=== PATIENT | female | born 1995 | race Caucasian/White ===

== ENCOUNTER → 2017-10-06 21:05 | Inpatient (IN) | payer OTHER ==
[2017-10-05 06:36] LABS: Basophils % (A) 0 %; Eosinophils # (A) 0.1 k/uL (0-0.7); Eosinophils % (A) 1 %; HCT 34.4 % (34.0-46.0); HGB 11.6 gm/dL (11.4-16.0); Lymphocytes # (A) 1.7 k/uL (1.0-4.8); Lymphocytes % (A) 18 %; MCH 30.7 pg (25.0-35.0); MCHC 33.6 g/dL (31.0-37.0); MCV 91.5 fL (80.0-100.0); Mean Platelet Volume 9.5; Monocytes # (A) 0.6 k/uL (0-1.0); Monocytes % (A) 6 %; Neutrophils # (A) 7.2 k/uL (1.3-7.7); Neutrophils % (A) 73 %; Platelet Count 180 k/uL (150-450); RBC 3.76 m/uL (3.80-5.40); WBC 9.9 k/uL (3.8-10.6)
[2017-10-05] MEDS: LACTATED RINGERS 1,000 ML IV SCH ×2 (07:08→13:43)
[2017-10-05] MEDS: OXYTOCIN 20 UNITS/1000 ML NS 1,000 ML IV SCH ×2 (07:23→21:03)
--- NOTE | 2017-10-05 09:24 | P.HPOB ---
History of Present Illness H&P Date: 10/05/17 This is a 22-year-old white female 2 para 1001 EDC 10/12/2017 at 39 and one sevenths weeks' gestation. Patient presents today for induction with favorable multiparous cervix. Her is remarkable for increased amniotic fluid index at 27 cm, along with an estimated weight of 95th percentile. She denies vaginal bleeding or fluid leakage. Fetus is been active throughout the . Past obstetric history is significant for blood type A+, group B strep cultures positive, rubella status immune. VDRL testing, hepatitis B surface antigen, HIV testing, urine culture, gonorrhea Chlamydia cultures all negative. One- hour Glucola 112. Past medical history is significant for Jose's thyroiditis and anemia. Past surgical history adenoidectomy 1998, wisdom teeth extracted. Current medications vitamins daily. ALLERGIES include red dye to which reports hives and swelling as well as seasonal ALLERGIES. Reproductive history significant for 8 pounds vaginal delivery in 2014. Family history significant for thyroiditis, hypertension, multiple myeloma, myocardial infarction and stroke, kidney failure. Social history patient is , she has never been a smoker, she denies alcohol or drug use. On exam this is a pleasant white female who is 5 foot 0 inches, 176 pounds, vital signs are stable including an admission blood pressure 124/66, patient is afebrile. The general physical exam is within normal limits. Chest is clear in all carrillo. Extremities reveal trace to +1 edema. heart rate is consistent with reactive NST. Cervix is 3 cm dilated, 70% effaced, -2 station, vertex presentation, anterior and soft. Artificial amniorrhexis reveals abundant clear fluid. Impression: 39 and one sevenths weeks intrauterine , suspected macrosomia and polyhydramnios. Here for induction. Positive group B strep cultures, first dose of antibiotics given. Plan: Continue antibiotic per administration per hospital protocol. Continue oxytocin induction per protocol. Close maternal and surveillance. Anticipate normal spontaneous vaginal delivery. Review of Systems Negative except as in HPI Past Medical History Past Medical History: Thyroid Disorder Additional Past Medical History / Comment(s): hypothyroid History of Any Multi-Drug Resistant Organisms: None Reported Past Surgical History: Adenoidectomy Additional Past Surgical History / Comment(s): childhood. wisdom teeth removal 2010 Past Anesthesia/Blood Transfusion Reactions: No Reported Reaction Past Psychological History: No Psychological Hx Reported Smoking Status: Never smoker Past Drug Use History: None Reported - Past Family History Father History Unknown: Yes Additional Family Medical History / Comment(s): heart attack and stroke Medications and Allergies Home Medications Medication Instructions Recorded Confirmed Type [place]-3 Fatty Acids [[place]-3] 1,000 mg PO DAILY 10/05/17 10/05/17 History Vitamin B Complex/Folic Acid 0.4 mg PO DAILY 10/05/17 10/05/17 History [B-Complex Tablet] Allergies Allergy/AdvReac Type Severity Reaction Status Date / Time gluten Allergy Swelling Verified 10/05/17 06:10 Milk Containing Products Allergy Rash/Hives Verified 10/05/17 06:10 [Dairy] red dye Allergy Rash/Hives Verified 10/05/17 06:10 yellow dye Allergy Swelling Verified 10/05/17 06:10 Exam - Vital Signs Vital signs: Vital Signs Temp Pulse Resp BP 10/05/17 07:26 98.4 F 80 16 124/66 Intake and Output 10/04/17 10/05/17 10/05/17 22:59 06:59 14:59 Other: Weight 79.832 kg See dictation please under HPI Results Result Diagrams: 10/05/17 06:15 Abnormal Lab Results - Last 24 Hours (Table) 10/05/17 Range/Units 06:15 RBC 3.76 L (3.80-5.40) m/uL Assessment and Plan Plan: Continue antibiotic administration per hospital protocol for positive group B strep cultures. Continue oxytocin per hospital protocol. Close maternal and surveillance. Anticipate normal spontaneous vaginal delivery. Time with Patient: Less than 30
[2017-10-05] MEDS: PENICILLIN G POTASSIUM (BULK) 2,500,000 UNIT in DEXTROSE 5% IN WATER 100 ML IV SCH ×6 (11:30→19:18)
--- NOTE | 2017-10-05 21:25 | P.PROBDLV ---
Vaginal Delivery Note - . Vaginal Delivery Note: White female 2 papr 1001 EDC 10/12/2017 at 39 and one sevenths weeks' gestation. Patient presented for induction with macrosomia, estimated weight greater than 95th percentile, and elevated LEONARDA. is remarkable for positive group B strep cultures, rubella status immune, blood type A positive. Please see my dictated history and physical for details. Artificial amniorrhexis revealed abundant clear fluid. Oxytocin was started and titrated per hospital protocol. Penicillin G was given per hospital protocol as well, patient received for doses. She became completely dilated at 1930 hrs. and began the second stage of labor at that time. Patient did well in the second stage. heart tones remained reassuring with excellent roxe-mo-hvuf variability. Ultimately the perineal body was prepped and draped in the usual sterile fashion. 's head crowned occiput anterior position and he restituted accordingly. There was a nuchal cord 1 that was reduced on the perineal body. At this time attempt was made to deliver the anterior or left shoulder. No descent was noted. Therefore an exaggerated Angelina maneuver was performed along with suprapubic pressure. Again, no station was made. Attempt was then made to perform the would's corkscrew maneuver, but the infant's torso did not rotate. Once again suprapubic pressure was given with downward motion and the left shoulder delivered from underneath the pubic symphysis. At this point the oropharynx, nasopharynx and external nares were all bulb suctioned on the perineal body. Patient is officially delivered of a liveborn male infant at 2002 hours. The umbilical cord is doubly clamped and ligated, he is handed to waiting nurses for evaluation where scores of 8 and 8 at one and 5 minutes respectively are given. The placenta delivers spontaneously, it is inspected and noted to be intact with trivascular cord at 2004 hours. This time the perineal body is redraped. Inspection of the cervix, vagina, perineum, periurethral and perirectal areas reveals no lacerations and no defects. Fundus is firm and in the midline, symmetric and at the umbilicus upon completion of delivery. All sponge needle and enhancement counts are correct at the end of the procedure. weighed 4410 g or 9 lbs. 12 oz. Patient is requesting circumcision for her infant son.
[2017-10-05] MEDS: IBUPROFEN 600 MG TAB PO PRN (23:19)
[2017-10-06] MEDS: ACETAMINOPHEN TAB 325 MG TAB PO PRN ×2 (02:07→08:55)
[2017-10-06 04:44] VITALS: RESP 18
[2017-10-06] MEDS: IBUPROFEN 600 MG TAB PO PRN ×2 (05:11→11:14)
--- NOTE | 2017-10-06 07:34 | P.DS ---
Providers Date of admission: 10/05/17 05:54 Expected date of discharge: 10/06/17 Attending physician: Ginette Romero Primary care physician: Stated None Hospital Course: This is a 22-year-old white female 2 para 1001 EDC 10/12/2017 at 39 and one sevenths weeks' gestation. Patient presented for induction for suspected macrosomia, estimated weight greater than 95th percentile, and elevated fluid her amniotic fluid index. is remarkable for positive group B strep cultures, please see my dictated history and physical for details. Patient was admitted, artificial amniorrhexis revealed clear fluid. Oxytocin was started and titrated per hospital protocol. She requested and received an epidural. She went on to deliver a liveborn male infant with scores of 8 and 8 at one and 5 minutes respectively. weighed 9 lbs. 12 oz. or 4410 g. She did have a mild shoulder dystocia that was alleviated with Angelina maneuvers and suprapubic pressure. No lacerations were sustained. Estimated blood loss 300 mL's. Please see my dictated delivery note for details. This morning the patient is doing well. She is voiding, ambulating and passing flatus without difficulty. Vital signs are stable and she is afebrile. Fundus is firm and in the midline, symmetric and 18 week size. Extremities are negative for edema. Breasts are not engorged. Circumcision has been performed , please see dictation. Patient is being discharged home in very good condition. She will follow-up with me in the office in 6 weeks. I have reminded her no intercourse, tampons or douching. We've discussed briefly options for contraception and we will discuss this further in the office. She will use jopa-[id number] ibuprofen as needed for pain, 2 200 mg pills, 3 every 6 hours as needed. She is reminded to call me with any fevers shakes or chills, foul smelling or copious lochia, with any pain not alleviated by [id number] products, with any issues of the breasts, the perineal body, or indeed with any difficulties questions or concerns. Patient Condition at Discharge: Good Plan - Discharge Summary New Discharge Prescriptions: No Action Vitamin B Complex/Folic Acid [B-Complex Tablet] 0.4 mg PO DAILY [place]-3 Fatty Acids [[place]-3] 1,000 mg PO DAILY Discharge Medication List [place]-3 Fatty Acids [[place]-3] 1,000 mg PO DAILY 10/05/17 [History] Vitamin B Complex/Folic Acid [B-Complex Tablet] 0.4 mg PO DAILY 10/05/17 [ History] Follow up Appointment(s)/Referral(s): Ginette Romero MD [STAFF PHYSICIAN] - 6 Weeks
[2017-10-06] MEDS: SENNOSIDES-DOCUSATE SODIUM 1 EACH TAB PO SCH ×2 (08:51→21:20)
[2017-10-06 10:30] VITALS: TEMP 97.8
[2017-10-06 16:07] VITALS: BP 104/46; PULSE 56
[~2017-10-06 21:05] MED LIST: BENZOCAINE/MENTHOL SPRAY 1 GM/SPRAY AEROSOL TOPICAL PRN; BUPIVACAINE (PF) 0.25% 30 ML VIAL ONE; CARBOPROST TROMETHAMINE 250 MCG/ML 1 ML AMP IM PRN; HYDROCORTISONE 2.5% RECTAL CREAM 30 GM TUBE RECTAL PRN; HYDROcodone/APAP 5-325MG 1 EACH TAB PO PRN; IBUPROFEN ORAL SUSP 100 MG/5 ML CUP PO PRN; LACTATED RINGERS 1,000 ML IV SCH; LANOLIN CREAM 5 GM TUBE TOPICAL PRN; LIDOCAINE 1% (PF) 10 MG/ML (30 ML SDV) SQ PRN; METHYLERGONOVINE 0.2 MG/ML 1 ML AMP IM PRN; OXYTOCIN 10 UNIT/ML 1 ML VIAL IM PRN; OXYTOCIN 30 UNITS/500 ML NS 30 UNIT in SALINE 1 500ML.BAG IV SCH; PENICILLIN G POTASSIUM (BULK) 2,500,000 UNIT in DEXTROSE 5% IN WATER 100 ML IV SCH; PENICILLIN G POTASSIUM (BULK) 5,000,000 UNIT in DEXTROSE 5% IN WATER 100 ML IV STA; PENICILLIN G POTASSIUM 2,500,000 UNIT in DEXTROSE 5% IN WATER 100 ML IVPB SCH; SIMETHICONE 80 MG CHEWABLE PO PRN; SODIUM CHLORIDE 0.9% 100 ML BAG ONE; TERBUTALINE 1 MG/ML VIAL SQ PRN; WITCH HAZEL 1 EACH MED..PAD TOPICAL PRN; ZOLPIDEM 5 MG TAB PO PRN; diphenhydrAMINE 25 MG CAP PO PRN; diphenhydrAMINE 50 MG CAP PO PRN; diphenhydrAMINE 50 MG/ML 1 ML VIAL IVP PRN; fentaNYL (PF) 50 MCG/ML 5 ML AMP ONE
== END | disposition home or self-care (01) | DRG 775 ==
LOC: 4FBP 10-05 05:54
PROVIDERS: ADMIT Obstetrics & Gynecology; ATTEND Obstetrics & Gynecology
PROC: 10907ZC Drainage of Amniotic Fluid, Therapeutic from Products of Conception, Via Natural or Artificial Opening (ICD-10-PCS; principal; 2017-10-05)
PROC: 10E0XZZ Delivery of Products of Conception, External Approach (ICD-10-PCS; principal; 2017-10-05)
PROC: 3E0R3NZ Introduction of Analgesics, Hypnotics, Sedatives into Spinal Canal, Percutaneous Approach (ICD-10-PCS; principal; 2017-10-05)
PROC: 00HU33Z Insertion of Infusion Device into Spinal Canal, Percutaneous Approach (ICD-10-PCS; principal; 2017-10-05)
PROC: 3E033VJ Introduction of Other Hormone into Peripheral Vein, Percutaneous Approach (ICD-10-PCS; principal; 2017-10-05)
DX: O36.63X0 Maternal care for excessive fetal growth, third trimester, not applicable or unspecified (principal); O69.81X0 Labor and delivery complicated by cord around neck, without compression, not applicable or unspecified; O99.284 Endocrine, nutritional and metabolic diseases complicating childbirth; E06.3 Autoimmune thyroiditis; O99.824 Streptococcus B carrier state complicating childbirth; Z37.0 Single live birth; Z3A.39 39 weeks gestation of pregnancy; Z82.49 Family history of ischemic heart disease and other diseases of the circulatory system; Z83.49 Family history of other endocrine, nutritional and metabolic diseases
CPT/HCPCS: 85025; 88307

== ENCOUNTER → 2019-04-05 | Outpatient (CLI) | payer OTHER | END | disposition home or self-care (01) | LOC: LABWHC1 15:10 | PROVIDERS: ATTEND Obstetrics & Gynecology | DX: O20.0 Threatened abortion (principal); Z3A.00 Weeks of gestation of pregnancy not specified | CPT/HCPCS: 36415; 84702 ==

== ENCOUNTER → 2019-04-07 | Outpatient (CLI) | payer OTHER | END | disposition home or self-care (01) | LOC: LABWHC1 11:33 | PROVIDERS: ATTEND Obstetrics & Gynecology | DX: O20.0 Threatened abortion (principal) | CPT/HCPCS: 36415; 84702; 86850; 86900; 86901 ==

== ENCOUNTER 2019-04-29 10:37 | Emergency (ER) | payer OTHER ==
[2019-04-29 11:38] VITALS: PULSE 68
[2019-04-29 12:10] LABS: Appearance,Urine Clear (Clear); Bacteria,Urine Occasional /hpf; Bilirubin,Urine Negative (Negative); Blood,Urine Trace (Negative); Color,Urine Light Yellow; Glucose,Urine (UA) Negative (Negative); Ketones,Urine Negative (Negative); Leukocyte Esterase,Urine Negative (Negative); Mucus,Urine Rare /hpf; Nitrite,Urine Negative (Negative); PH, Urine 6.5 (5.0-8.0); Protein,Urine Negative (Negative); RBC,Urine 3 /hpf (0-5); Specific Gravity,Urine 1.009 (1.001-1.035); Squamous Epithelial Cell,Urine 4 /hpf (0-4); Urobilinogen,Urine <2.0 mg/dL (<2.0); WBC,Urine 2 /hpf (0-5)
[2019-04-29] MEDS ORDERED: SODIUM CHLORIDE 0.9% 1,000 ML IV ONE (12:29)
--- NOTE | 2019-04-29 12:31 | ED ---
Female Urogenital HPI - General Chief complaint: Abdominal Pain Stated complaint: Abd pain Time Seen by Provider: 04/29/19 11:41 Source: patient, RN notes reviewed, old records reviewed Mode of arrival: ambulatory Limitations: no limitations - History of Present Illness Initial comments: This is a 23-year-old female date ER. She presents today for evaluation regards to bowel pain with known . Patient believes she is about 4 weeks she is a patient's. She's had some bleeding and some cramping abdominal cramping and pain for the past day or 2. No modifying factors for symptoms. Patient's concerned about the abdominal pain but no fevers, eating and drinking appropriately. No diarrhea patient is having a little bowel mov ements with no abdominal surgical history MD Complaint: pelvic pain (And cramping with positive ) -: days(s) Location: suprapubic (Bilateral) Radiation: non-radiating Severity: mild Severity scale (1-10): 3 Quality: cramping Consistency: constant Improves with: none Worsens with: none Patient : Yes Associated Symptoms: vaginal bleeding, abdominal pain - Related Data Home Medications Medication Instructions Recorded Confirmed [place]-3 Fatty Acids [[place]-3] 1,000 mg PO DAILY 10/05/17 10/05/17 Vitamin B Complex/Folic Acid 0.4 mg PO DAILY 10/05/17 10/05/17 [B-Complex Tablet] Allergies Allergy/AdvReac Type Severity Reaction Status Date / Time gluten Allergy Swelling Verified 10/05/17 06:10 Milk Containing Products Allergy Rash/Hives Verified 10/05/17 06:10 [Dairy] red dye Allergy Rash/Hives Verified 10/05/17 06:10 yellow dye Allergy Swelling Verified 10/05/17 06:10 Review of Systems ROS Statement: Those systems with pertinent positive or pertinent negative responses have been documented in the HPI. ROS Other: All systems not noted in ROS Statement are negative. Past Medical History Past Medical History: Thyroid Disorder Additional Past Medical History / Comment(s): hypothyroid History of Any Multi-Drug Resistant Organisms: None Reported Past Surgical History: Adenoidectomy Additional Past Surgical History / Comment(s): childhood. wisdom teeth removal 2010 Past Anesthesia/Blood Transfusion Reactions: No Reported Reaction Past Psychological History: No Psychological Hx Reported Smoking Status: Never smoker Past Alcohol Use History: Occasional Past Drug Use History: None Reported - Past Family History Father History Unknown: Yes Additional Family Medical History / Comment(s): heart attack and stroke General Exam - General Exam Comments Initial Comments: No Significant abdominal tenderness on exam Limitations: no limitations General appearance: alert, in no apparent distress Head exam: Present: atraumatic, normocephalic, normal inspection Eye exam: Present: normal appearance, PERRL, EOMI. Absent: scleral icterus, conjunctival injection, periorbital swelling ENT exam: Present: normal exam, mucous membranes moist Neck exam: Present: normal inspection. Absent: tenderness, meningismus, lymphadenopathy Respiratory exam: Present: normal lung sounds bilaterally. Absent: respiratory distress, wheezes, rales, rhonchi, stridor Cardiovascular Exam: Present: regular rate, normal rhythm, normal heart sounds. Absent: systolic murmur, diastolic murmur, rubs, gallop, clicks GI/Abdominal exam: Present: soft, normal bowel sounds. Absent: distended, tenderness, guarding, rebound, rigid Extremities exam: Present: normal inspection, full ROM, normal capillary refill. Absent: tenderness, pedal edema, joint swelling, calf tenderness Back exam: Present: normal inspection Neurological exam: Present: alert, oriented X3, CN II-XII intact Psychiatric exam: Present: normal affect, normal mood Skin exam: Present: warm, dry, intact, normal color. Absent: rash Course Vital Signs 04/29/19 11:36 Temperature 64 F L Pulse Rate 68 Respiratory 19 Rate Blood Pressure 127/71 O2 Sat by Pulse 99 Oximetry - Reevaluation(s) Reevaluation #1: 04/29/19 14:10 Medical records review Reevaluation #2: 04/29/19 14:11 Again without significant pain and repeat evaluation Reevaluation #3: 04/29/19 14:[address] Loera for Dr. Romero, patient will be followed beta-hCG and be seen in the office on Wednesday Medical Decision Making - Medical Decision Making 23 female w abdominal pain in early . This is Spontaneous v ersus incomplete versus possible ectopic. Beta of 5000 no seen IUP on ultrasound patient is having vaginal bleeding but not significant mild abdominal cramping but no significant abdominal pain or tenderness. - Lab Data Result diagrams: 04/29/19 12:42 04/29/19 12:42 Lab Results 04/29/19 04/29/19 04/29/19 Range/Units 11:47 11:47 12:42 WBC (3.8-10.6) k/uL RBC (3.80-5.40) m/uL Hgb (11.4-16.0) gm/dL Hct (34.0-46.0) % MCV (80.0-100.0) fL MCH (25.0-35.0) pg MCHC (31.0-37.0) g/dL RDW (11.5-15.5) % Plt Count (150-450) k/uL Neutrophils % % Lymphocytes % % Monocytes % % Eosinophils % % Basophils % % Neutrophils # (1.3-7.7) k/uL Lymphocytes # (1.0-4.8) k/uL Monocytes # (0-1.0) k/uL Eosinophils # (0-0.7) k/uL Basophils # (0-0.2) k/uL Sodium (137-145) mmol/L Potassium (3.5-5.1) mmol/L Chloride (98-107) mmol/L Carbon Dioxide (22-30) mmol/L Anion Gap mmol/L BUN (7-17) mg/dL Creatinine (0.52-1.04) mg/dL Est GFR (CKD-EPI)AfAm (>60 ml/min/1.73 sqM) Est GFR (CKD-EPI)NonAf (>60 ml/min/1.73 sqM) Glucose (74-99) mg/dL Calcium (8.4-10.2) mg/dL Total Bilirubin (0.2-1.3) mg/dL AST (14-36) U/L ALT (9-52) U/L Alkaline Phosphatase (38-126) U/L Total Protein (6.3-8.2) g/dL Albumin (3.5-5.0) g/dL HCG, Quant mIU/mL Urine Color Light Yellow Urine Appearance Clear (Clear) Urine pH 6.5 (5.0-8.0) Ur Specific [place] 1.009 (1.001-1.035) Urine Protein Negative (Negative) Urine Glucose (UA) Negative (Negative) Urine Ketones Negative (Negative) Urine Blood Trace H (Negative) Urine Nitrite Negative (Negative) Urine Bilirubin Negative (Negative) Urine Urobilinogen <2.0 (<2.0) mg/dL Ur Leukocyte Esterase Negative (Negative) Urine RBC 3 (0-5) /hpf Urine WBC 2 (0-5) /hpf Ur Squamous Epith Cells 4 (0-4) /hpf Urine Bacteria Occasional H (None) /hpf Urine Mucus Rare H (None) /hpf Urine HCG, Qual Detected (Not Detectd) Blood Type A Positive Blood Type Recheck A Pos Bld Type Recheck Status No 04/29/19 04/29/19 Range/Units 12:42 12:42 WBC 5.2 (3.8-10.6) k/uL RBC 4.12 (3.80-5.40) m/uL Hgb 13.4 (11.4-16.0) gm/dL Hct 40.0 (34.0-46.0) % MCV 97.1 (80.0-100.0) fL MCH 32.4 (25.0-35.0) pg MCHC 33.4 (31.0-37.0) g/dL RDW 11.9 (11.5-15.5) % Plt Count 211 (150-450) k/uL Neutrophils % 58 % Lymphocytes % 28 % Monocytes % 9 % Eosinophils % 2 % Basophils % 0 % Neutrophils # 3.0 (1.3-7.7) k/uL Lymphocytes # 1.4 (1.0-4.8) k/uL Monocytes # 0.5 (0-1.0) k/uL Eosinophils # 0.1 (0-0.7) k/uL Basophils # 0.0 (0-0.2) k/uL Sodium 142 (137-145) mmol/L Potassium 4.6 (3.5-5.1) mmol/L Chloride 106 (98-107) mmol/L Carbon Dioxide 27 (22-30) mmol/L Anion Gap 9 mmol/L BUN 8 (7-17) mg/dL Creatinine 0.55 (0.52-1.04) mg/dL Est GFR (CKD-EPI)AfAm >90 (>60 ml/min/1.73 sqM) Est GFR (CKD-EPI)NonAf >90 (>60 ml/min/1.73 sqM) Glucose 93 (74-99) mg/dL Calcium 9.7 (8.4-10.2) mg/dL Total Bilirubin 0.3 (0.2-1.3) mg/dL AST 26 (14-36) U/L ALT 29 (9-52) U/L Alkaline Phosphatase 41 (38-126) U/L Total Protein 7.2 (6.3-8.2) g/dL Albumin 4.3 (3.5-5.0) g/dL HCG, Quant 5688.0 mIU/mL Urine Color Urine Appearance (Clear) Urine pH (5.0-8.0) Ur Specific [place] (1.001-1.035) Urine Protein (Negative) Urine Glucose (UA) (Negative) Urine Ketones (Negative) Urine Blood (Negative) Urine Nitrite (Negative) Urine Bilirubin (Negative) Urine Urobilinogen (<2.0) mg/dL Ur Leukocyte Esterase (Negative) Urine RBC (0-5) /hpf Urine WBC (0-5) /hpf Ur Squamous Epith Cells (0-4) /hpf Urine Bacteria (None) /hpf Urine Mucus (None) /hpf Urine HCG, Qual (Not Detectd) Blood Type Blood Type Recheck Bld Type Recheck Status Disposition Clinical Impression: Abdominal pain affecting Disposition: HOME SELF-CARE Condition: Undetermined Instructions (If sedation given, give patient instructions): Threatened Miscarriage (ED) Is patient prescribed a controlled substance at d/c from ED?: No Referrals: Vilma Hartley DO [Primary Care Provider] - 1-2 days
[2019-04-29 13:03] LABS: Basophils % (A) 0 %; Eosinophils # (A) 0.1 k/uL (0-0.7); Eosinophils % (A) 2 %; HGB 13.4 gm/dL (11.4-16.0); Lymphocytes # (A) 1.4 k/uL (1.0-4.8); Lymphocytes % (A) 28 %; MCH 32.4 pg (25.0-35.0); MCHC 33.4 g/dL (31.0-37.0); MCV 97.1 fL (80.0-100.0); Mean Platelet Volume 8.1; Monocytes # (A) 0.5 k/uL (0-1.0); Monocytes % (A) 9 %; Neutrophils % (A) 58 %; Platelet Count 211 k/uL (150-450); RBC 4.12 m/uL (3.80-5.40); RDW 11.9 % (11.5-15.5); WBC 5.2 k/uL (3.8-10.6)
[2019-04-29 13:15] LABS: ALT 29 U/L (9-52); AST 26 U/L (14-36); African American GFR (CKD) >90 (>60 ml/min/1.73 sqM); Albumin 4.3 g/dL (3.5-5.0); Alkaline Phosphatase 41 U/L (38-126); Anion Gap 9 mmol/L; Blood Urea Nitrogen 8 mg/dL (7-17); Calcium 9.7 mg/dL (8.4-10.2); Carbon Dioxide 27 mmol/L (22-30); Chloride 106 mmol/L (98-107); Glucose 93 mg/dL (74-99); Non-African American GFR(CKD) >90 (>60 ml/min/1.73 sqM); Potassium 4.6 mmol/L (3.5-5.1); Sodium 142 mmol/L (137-145); Total Bilirubin 0.3 mg/dL (0.2-1.3); Total Protein 7.2 g/dL (6.3-8.2)
--- NOTE | 2019-04-29 14:05 | US ---
EXAMINATION TYPE: Transabdominal DATE OF EXAM: 04/29/2019 1:14 PM COMPARISON: NONE CLINICAL HISTORY: pain. Lower pelvic pain. EXAM PERFORMED: Transvaginal (TV) and Transabdominal (TA) EXAM MEASUREMENTS: GESTATIONAL AGE / DATING Physician Established: Not yet established Dates by LMP: (4 weeks/3 days) EDC: 01/03/2020 Dates by First Scan: No previous this is first scan Dates by Current Scan for: No IUP seen at this time ( MATERNAL ANATOMY Uterus: 9.2 x 3.7 x 5.8 cm Right Ovary: 2.3 x 1.1 x 1.5 cm Left Ovary: 2.8 x 1.4 x 1.8 cm Post CDS / Adnexa: wnl Presence of free fluid: No Presence of corpus luteal cyst: No Presence of subchorionic bleed: No GESTATION / SURVEY IUP: No IUP seen at this time Date of LMP: 03/29/2019 Beta HcG (if available): Not available at this time No IUP visualized at this time. IMPRESSION: WE HAVE NOT IDENTIFIED INTRAUTERINE OR EXTRAUTERINE GESTATION. SHORT-TERM FOLLOW-UP +/- SERIAL BETA-H CGS WOULD BE SUGGESTED.
[2019-04-29 14:45] VITALS: BP 112/70; RESP 16; TEMP 98.3
== END 2019-04-29 14:30 | disposition home or self-care (01) ==
LOC: EC 10:37
DX: O99.89 Other specified diseases and conditions complicating pregnancy, childbirth and the puerperium (principal); R10.2 Pelvic and perineal pain; O20.9 Hemorrhage in early pregnancy, unspecified; Z91.011 Allergy to milk products; Z91.018 Allergy to other foods; Z91.048 Other nonmedicinal substance allergy status; Z3A.01 Less than 8 weeks gestation of pregnancy
CPT/HCPCS: 36415; 76801; 76817; 80053; 81001; 81025; 84702; 85025; 86900; 86901; 96360; 99284

== ENCOUNTER → 2019-05-16 | Outpatient (CLI) | payer OTHER | END | disposition home or self-care (01) | LOC: LABWHC1 09:00 | PROVIDERS: ATTEND Obstetrics & Gynecology | DX: O02.1 Missed abortion (principal) | CPT/HCPCS: 36415; 84702 ==

== ENCOUNTER 2022-03-28 21:51 | Inpatient (IN) | payer BC, OTHER ==
[2022-03-28] MEDS ORDERED: LACTATED RINGERS 1,000 ML IV ONE (22:14)
[2022-03-28] MEDS ORDERED: CITRIC ACID-SODIUM CITRATE 15 ML CUP PO ONE (22:14)
[2022-03-28] MEDS: LACTATED RINGERS 1,000 ML IV SCH (22:20)
[2022-03-28 22:37] LABS: Basophils % (A) 0 %; Eosinophils % (A) 0 %; HCT 32.2 % (34.0-46.0); HGB 12.2 gm/dL (11.4-16.0); Lymphocytes # (A) 1.7 k/uL (1.0-4.8); Lymphocytes % (A) 23 %; MCH 34.5 pg (25.0-35.0); MCHC 37.8 g/dL (31.0-37.0); MCV 91.3 fL (80.0-100.0); Mean Platelet Volume 11.8; Monocytes # (A) 0.4 k/uL (0-1.0); Monocytes % (A) 6 %; Neutrophils # (A) 4.9 k/uL (1.3-7.7); Neutrophils % (A) 69 %; Platelet Count 123 k/uL (150-450); RBC 3.52 m/uL (3.80-5.40); WBC 7.1 k/uL (3.8-10.6)
[2022-03-28] MEDS ORDERED: OXYTOCIN 30 UNITS/500 ML NS BAG IV ONE (22:40)
[2022-03-28] MEDS ORDERED: fentaNYL (PF) 50 MCG/ML 2 ML AMP ONE (22:40)
[2022-03-28] MEDS ORDERED: ONDANSETRON 4 MG/2 ML VIAL ONE (22:40)
[2022-03-28] MEDS ORDERED: KETOROLAC 15 MG/ML 1 ML VIAL ONE (22:40)
[2022-03-28] MEDS ORDERED: MORPHINE SULFATE (PF) 0.3 MG/0.3 ML SYR ONE (22:40)
[2022-03-28] MEDS ORDERED: SIMETHICONE 80 MG CHEWABLE PO PRN (23:32)
[2022-03-28] MEDS ORDERED: METOCLOPRAMIDE 5 MG/ML 2 ML VIAL IVP PRN (23:32)
[2022-03-28] MEDS ORDERED: ZOLPIDEM 5 MG TAB PO PRN (23:32)
[2022-03-28] MEDS ORDERED: diphenhydrAMINE 50 MG/ML 1 ML VIAL IVP PRN (23:32)
[2022-03-28] MEDS ORDERED: ONDANSETRON 4 MG/2 ML VIAL IVP PRN (23:32)
[2022-03-28] MEDS ORDERED: NALOXONE 0.4 MG/ML 1 ML VIAL IV PRN ×2 (23:32→23:35)
[2022-03-28] MEDS ORDERED: LANOLIN CREAM 5 GM TUBE TOPICAL PRN (23:32)
[2022-03-28] MEDS ORDERED: diphenhydrAMINE 25 MG CAP PO PRN (23:32)
[2022-03-28] MEDS ORDERED: HYDROmorphone PCA 10 MG/50 ML BAG IV PRN (23:35)
[2022-03-28] MEDS ORDERED: OXYTOCIN 30 UNITS/500 ML NS 30 UNIT in SALINE 1 500ML.BAG IV SCH (23:45)
--- NOTE | 2022-03-28 23:47 | P.HPOB ---
History of Present Illness H&P Date: 03/28/22 Chief Complaint: Contractions This patient is a pleasant 26-year-old 4 para 2 female estimated date of confinement 04/02/2022 estimated gestational age 39-2/7 weeks presents to labor and delivery complaints of regular painful contractions since earlier this evening. Patient on admission is 5 cm dilated. care is complicated by a past history of severe shoulder dystocia with her last baby and the patient had a scheduled for this Wednesday. care is with Dr. Montiel. care otherwise appears uncomplicated. Review of Systems Genitourinary: Reports Menstruation: Reports amenorrhea Past Medical History Past Medical History: Thyroid Disorder Additional Past Medical History / Comment(s): hypothyroid History of Any Multi-Drug Resistant Organisms: None Reported Past Surgical History: Adenoidectomy Additional Past Surgical History / Comment(s): childhood. wisdom teeth removal 2010 Past Anesthesia/Blood Transfusion Reactions: No Reported Reaction Past Psychological History: No Psychological Hx Reported Past Alcohol Use History: Occasional Past Drug Use History: None Reported - Past Family History Father History Unknown: Yes Additional Family Medical History / Comment(s): heart attack and stroke Medications and Allergies Home Medications Medication Instructions Recorded Confirmed Type [place]-3 Fatty Acids [[place]-3] 1,000 mg PO DAILY 10/05/17 10/05/17 History Vitamin B Complex/Folic Acid 0.4 mg PO DAILY 10/05/17 10/05/17 History [B-Complex Tablet] Allergies Allergy/AdvReac Type Severity Reaction Status Date / Time gluten Allergy Swelling Verified 10/05/17 06:10 Milk Containing Products Allergy Rash/Hives Verified 10/05/17 06:10 [Dairy] red dye Allergy Rash/Hives Verified 10/05/17 06:10 yellow dye Allergy Swelling Verified 10/05/17 06:10 Exam Intake and Output 03/28/22 03/28/22 03/29/22 14:59 22:59 05:59 Other: Weight 81.647 kg - OBG Physical Exam Abdomen: bowel sounds normal, no diffuse tenderness, no bruit present, no guarding noted, no hepatomegaly, no splenomegaly, no mass Vulva: both: normal Vagina: normal moisture, no discharge Cervix: no lesion (Cervix 5 cm with a high presenting part), no discharge Uterus: enlarged (Fundal height appears greater than gestational age) Results Patient's blood type is A positive, she is rubella immune, RPR is nonreactive, hepatitis B is negative, HIV is nonreactive, group B strep was negative although she does have a history of positive strep with a previous . Glucola was normal. Anatomy ultrasounds have been normal. Result Diagrams: 03/28/22 22:20 Abnormal Lab Results - Last 24 Hours (Table) 03/28/22 Range/Units 22:20 RBC 3.52 L (3.80-5.40) m/uL Hct 32.2 L (34.0-46.0) % MCHC 37.8 H (31.0-37.0) g/dL Plt Count 123 L (150-450) k/uL Assessment and Plan Assessment: This is a pleasant 26-year-old 4 para 2 female 39-2/7 weeks gestation who presents to labor and delivery in active labor with scheduled section for previous shoulder dystocia. I did re-discussed delivery plans with the patient and her and we plan to proceed with her section as she discuss with her primary seaport planning manager. She does understand the surgery and risks and risks of infection, bleeding, possible injury to bowel, bladder, vessels, and/or other organs. All the patient's questions are answered and a written consent is obtained. (1) 39 weeks gestation of Current Visit: Yes Status: Acute Code(s): Z3A.39 - 39 WEEKS GESTATION OF SNOMED Code(s): 25336002 (2) History of shoulder dystocia in prior Current Visit: Yes Status: Acute Code(s): Z87.59 - PERSONAL HISTORY OF COMP OF PREG, CHLDBRTH AND THE PUERP SNOMED Code(s): 569079217 (3) Active labor at term Current Visit: No Status: Acute Code(s): SQJ7701 - SNOMED Code(s): 12586160
--- NOTE | 2022-03-28 23:59 | P.OP ---
Date of Procedure: 03/28/22 Preoperative Diagnosis: #1: 39-2/7 week intrauterine . #2: Active labor. #3: History of previous shoulder dystocia with prior , desires section Postoperative Diagnosis: Same Procedure(s) Performed: Primary low transverse section Anesthesia: spinal Surgeon: Anjel Banks Headmaster/Mistress #1: Stephanie Gilliam Estimated Blood Loss (ml): 800 Pathology: none sent Condition: stable Disposition: observation Indications for Procedure: Please see dictated H&P for intimate details of this patient's admission. Brief summary this pleasant 26-year-old 4 para 2 female 39-2/7 weeks gestation admitted to labor and delivery with active labor and scheduled section due to history of previous shoulder dystocia. Patient understands this surgery and risks and risks of infection, bleeding, possible injury bowel, bladder, vessels, and/or other organs. All the patient's questions are answered and a written consent is obtained. Operative Findings: This is a vigorous viable male infant Apgars were 8 and 9 delivery time is 7 hours. weighed 4010 g or 8 lbs. 13 oz. Description of Procedure: This patient has a Huff catheter placed to straight drain. She is subsequently taken to the operating room and after the appropriate timeout spinal anesthetic is achieved. Of note she did not have Duramorph for this procedure. With an adequate level of anesthesia she's placed supine position. She has abdominal prep and drape. Scalpels and is taken and a Pfannenstiel skin incision is then made. A second scalpel is taken down to the fascia. Fascia scored with a knife. Fascial incision extended bilaterally using the Dunbar scissors. Fascia is then dissected off the rectus muscles sharply. Rectus muscles are the peritoneum identified and entered sharply. Peritoneal incision extended superior and inferior without difficulty. Bladder blade is then placed. Bladder peritoneum was taken sharply off the lower uterine segment. Scalpels and taken low transverse uterine incision is then made. Using a hemostat I into the uterine cavity bluntly and there is loss of clear fluid. Uterine incision is then extended bluntly. The 's head is delivered through the incision with fundal pressure. Mouth and nares are bulb suctioned. There is no evidence of a nuchal cord. With more fundal pressure with delivery the rest of this infa nt's body. Is a vigorous viable male infant Apgars are 8 and 9 delivery time was 20-57 hours. After delivery of the infant the umbilical cord is doubly clamped and cut. is handed off to the nurses in attendance. The placenta is then manually extracted intact. Uterus is then externalized and uterine incision demarcated with Keys clamps. Uterine incision then closed using 0 Vicryl running locked fashion 2 layers. Excellent hemostasis is noted. Bladder peritoneum was then reapproximated using a 3-0 Vicryl. Excess fluid is removed from the abdomen and pelvis. The uterus, tubes, ovaries appear normal for term gestation. The parietal peritoneum was then identified and closed using 0 Vicryl running fashion. The rectus muscles reapproximated in 0 Vicryl interrupted fashion. The fascial incision is then closed using 0 PDS. Fascial incision is intact and hemostatic. Subcutaneous tissues and closed using a 3-0 Vicryl. Skin is and closed using sadaf. All counts are correct 3. There are no complications. Infant and mother taken the birthing suite in satisfactory condition.
[2022-03-29] MEDS: ACETAMINOPHEN TAB 500 MG TAB PO SCH ×3 (02:25→14:21)
[2022-03-29] MEDS: KETOROLAC 15 MG/ML 1 ML VIAL IVP SCH ×5 (04:10→23:32)
[2022-03-29] MEDS: IBUPROFEN 600 MG TAB PO SCH ×3 (04:12→18:29)
--- NOTE | 2022-03-29 07:16 | P.PNOBGPC ---
Subjective - Subjective Patient reports: Reports appetite normal, Reports voiding normally, Reports pain well controlled, Reports ambulating normally : doing well Objective - Vital Signs Latest vital signs: Vital Signs Temp Pulse Resp BP Pulse Ox 03/29/22 04:00 98.9 F 50 L 16 122/70 03/29/22 02:13 50 L 16 109/67 97 03/29/22 01:44 EDT 57 L 16 116/64 99 03/29/22 01:37 EDT 52 L 16 120/64 98 03/29/22 01:29 EDT 97.6 F 52 L 16 112/74 100 03/29/22 01:14 EDT 51 L 16 108/59 100 03/29/22 00:59 49 L 16 108/59 100 03/29/22 00:29 97.6 F 50 L 16 100/57 99 03/29/22 00:14 49 L 16 97/58 99 03/29/22 00:00 48 L 16 99 03/28/22 23:59 50 L 16 99/57 94 L 03/28/22 23:43 60 16 96/59 97 03/28/22 23:35 99 03/28/22 23:32 99 03/28/22 23:29 97.3 F L 61 16 89/51 99 03/28/22 22:44 97.4 F L 85 16 130/78 100 03/28/22 22:13 97.4 F L 85 16 130/78 100 Intake and Output 03/28/22 03/29/22 03/29/22 23:59 06:59 14:59 Intake Total Output Total Balance Intake: IV Output: Urine Output, Quantitative Blood Loss Other: Voiding Method Weight - Exam Lungs: bilateral: normal Chest: Normal S1, Normal S2 Extremities: Present: normal Abdomen: Present: normal appearance, soft. Absent: distention, tenderness Incision: Present: normal, dry, intact Uterus: Present: normal, firm - Labs Labs: Abnormal Lab Results - Last 24 Hours (Table) 03/28/22 Range/Units 22:20 RBC 3.52 L (3.80-5.40) m/uL Hct 32.2 L (34.0-46.0) % MCHC 37.8 H (31.0-37.0) g/dL Plt Count 123 L (150-450) k/uL Assessment and Plan Assessment: Postoperative day #1. Patient is resting without complaints. Vital signs are stable and she is afebrile. Uterus is firm nontender and her incision is intact and dry. CBC is pending at time of this dictation. Patient did unfortunately have an ALLERGIC reaction to the Dilaudid [employer] OFFICE and therefore was immediately discontinued. Plan today is to advance her diet, while the patient to shower, check a CBC, and continue routine postoperative care (1) 39 weeks gestation of Current Visit: Yes Status: Acute Code(s): Z3A.39 - 39 WEEKS GESTATION OF SNOMED Code(s): 30847514 (2) History of shoulder dystocia in prior Current Visit: Yes Status: Acute Code(s): Z87.59 - PERSONAL HISTORY OF COMP OF PREG, CHLDBRTH AND THE PUERP SNOMED Code(s): 122125495 (3) Active labor at term Current Visit: No Status: Acute Code(s): DAI8785 - SNOMED Code(s): 17934430
--- NOTE | 2022-03-29 07:41 | P.MSEPDOC ---
Presenting Problems - Arrival Data Date of Arrival on Unit: 03/29/22 Time of Arrival on Unit: 21:52 Mode of Transport: Wheelchair - Complaint OB-Reason for Admission/Chief Complaint: Possible Onset of Labor Comment: pt. present to [facility] due to contractions every 5 min for 3 hours rating pain 11/30 Medical History - Information : 4 Para: 2 Term: 2 : 0 Abortions: Spontaneous or Elective: 1 Number of Living Children: 2 - Gestational Age Gestational Age by SHIVANI (wks/days): 39 Weeks and 3 Days - History Complications: Other Comment: hx of shoulder dystosia Review of Systems - Review of Systems Constitutional: No problems Breast: No problems ENT: No problems Cardiovascular: No problems Respiratory: No problems Gastrointestinal: No problems Genitourinary: No problems Musculoskeletal: No problems Neurological: No problems Skin: No problems Vital Signs - Temperature Temperature: 98.9 F Temperature Source: Axillary - Pulse Pulse Oximetery Pulse Rate: 50 Pulse Assessment Method: Automatic Cuff - Respirations Respiratory Rate: 16 Oxygen Delivery Method: Room Air - Blood Pressure Right Arm Blood Pressure: 122/70 Blood Pressure Mean: 87 Blood Pressure Source: Automatic Cuff Medical Screen Scoring - Cervical Exam Dilation (cm): 5 Effacement (%): 90 Station: -2 Membranes: Ruptured - Uterine Contractions Frequency From (mins): 2 Frequency To (mins): 4 Duration From (seconds): 50 Duration To (seconds): 100 Intensity: Strong Resting: Soft to palpation - Assessment - Baby A Baseline FHR: 120 Heart Rate - NICHD Category: Category I (Normal) NST: Reactive Physician Notification - Physician Notified Physician Notified Date: 03/29/22 Physician Notified Time: 22:05 Physician: Anjel Banks New Order Received: Yes - Notification Comment Comment: Dr. Banks notified of BUSINESS TEST ANALYST medication reaction. no new orders at this time alternate PRN pain medication in place Maternal Triage Index - Maternal Triage Index Presenting for scheduled procedure w/no complaint: No - Stat/Priority 1 Stat Priority 1: No - Urgent/Priority 2 Urgent Priority 2: Yes Provider Notified: Anjel Banks Provider Notified Time: 22:05 Criteria Met for Priority 2: pt. jenny, amnisure positve, 5cm 90%, -2, pt. is a janet due to hx of shoulder dystosia Disposition - Disposition OB Disposition: Admit I agree with the RN Medical Screening Exam: Yes Case reviewed; plan agreed upon as documented in EMR&OBIX.: Yes Diagnosis: ENCOUNTER FOR FULL-TERM UNCOMPLICATED DELIVERY (Patient's found to be in active labor and ruptured. Patient scheduled for history of shoulder dystocia with her last .)
[2022-03-29] MEDS: SENNOSIDES-DOCUSATE SODIUM 1 EACH TAB PO SCH ×2 (07:44→19:51)
--- NOTE | 2022-03-29 08:19 | P.PN ---
Progress Note - Text 03/28/22 733am D6-year-old female status post with spinal fentanyl. Patient seen and evaluated for postop pain control, patient has a VAS of 3. No complains of nausea vomiting she has mild facial pruritus which should subside soon.
[2022-03-29 08:46] LABS: Basophils % (A) 0 %; Eosinophils % (A) 0 %; HCT 31.2 % (34.0-46.0); HGB 10.6 gm/dL (11.4-16.0); Lymphocytes # (A) 1.2 k/uL (1.0-4.8); Lymphocytes % (A) 15 %; MCH 31.5 pg (25.0-35.0); MCHC 34.1 g/dL (31.0-37.0); MCV 92.3 fL (80.0-100.0); Mean Platelet Volume 11.9; Monocytes # (A) 0.3 k/uL (0-1.0); Monocytes % (A) 4 %; Neutrophils # (A) 6.5 k/uL (1.3-7.7); Neutrophils % (A) 79 %; RBC 3.38 m/uL (3.80-5.40); RDW 13.2 % (11.5-15.5); WBC 8.2 k/uL (3.8-10.6)
[2022-03-29 08:49] LABS: Platelet Count 99 k/uL (150-450)
[2022-03-29] MEDS: LACTATED RINGERS 1,000 ML IV SCH ×2 (12:54→16:39)
[2022-03-30] MEDS: ACETAMINOPHEN TAB 500 MG TAB PO SCH ×3 (02:13→09:11)
[2022-03-30 02:40] VITALS: RESP 16
[2022-03-30] MEDS: IBUPROFEN 600 MG TAB PO SCH ×3 (03:44→10:35)
[2022-03-30] MEDS: KETOROLAC 15 MG/ML 1 ML VIAL IVP SCH (05:19)
--- NOTE | 2022-03-30 08:58 | P.DS ---
Providers Date of admission: 03/28/22 22:25 Expected date of discharge: 03/30/22 Attending physician: Anjel Banks Primary care physician: Stated None Hospital Course: This is a 26-year-old female 4 para 2 at 39-2/7 weeks who presented in active labor. She underwent a primary low transverse section due to history of shoulder dystocia on 03/28/2022 and delivered a viable male with scores of 8 at 1 minute and 9 at 5 minutes and infant weight of 8 lbs. 13 oz. Her postoperative and course have been uncomplicated. Lochia has been decreasing. Pain is been well controlled. She has a cough that she had prior to admission but does give her some pain on her incision. Overall this has improved in her COVID test was negative. Her pain is well-controlled with ibuprofen and Tylenol. She is breast-feeding. Vital signs are stable. Abdomen soft with fundus firm and nontender. Bowel sounds are present 4. Incision is clean dry and intact with sadaf in place. Extremities show negative Homans. Impression is status post primary low transverse section postoperative day #2. Plan is to discharge home today. Routine postoperative and instructions are given. She will be given a prescription for ibuprofen. [place] will be removed and Steri-Strips placed prior to discharge. She is advised to call the office if she has any further questions or concerns prior to her appointment time. She is advised to follow up in the office in 1 week for postoperative check and in 6 weeks for check. Procedures: Primary low transverse section on 03/28/2022 Patient Condition at Discharge: Stable Plan - Discharge Summary New Discharge Prescriptions: New Ibuprofen [Motrin] 600 mg PO Q6H #60 tab Acetaminophen Tab [Tylenol] 1,000 mg PO Q6H tab Continue Vitamin B Complex/Folic Acid [B-Complex Tablet] 0.4 mg PO DAILY Vit No.179/Iron/Folic [ Tablet] 1 tab PO DAILY No Action [place]-3 Fatty Acids [[place]-3] 1,000 mg PO DAILY Discharge Medication List [place]-3 Fatty Acids [[place]-3] 1,000 mg PO DAILY 10/05/17 [History] Vitamin B Complex/Folic Acid [B-Complex Tablet] 0.4 mg PO DAILY 10/05/17 [History] Vit No.179/Iron/Folic [ Tablet] 1 tab PO DAILY 03/29/22 [History] Acetaminophen Tab [Tylenol] 1,000 mg PO Q6H tab 03/30/22 [Rx] Ibuprofen [Motrin] 600 mg PO Q6H #60 tab 03/30/22 [Rx] Follow up Appointment(s)/Referral(s): Shelby Montiel DO [Doctor of Osteopathic Medicine] - 1 Week Activity/Diet/Wound Care/Special Instructions: Instructions 1. Do not begin any exercise program for 3 weeks. 2. Do not resume sexual relations for 3 weeks or longer if uncomfortable. 3. You may take tub baths or showers at any time. 4. You may use tampons if desired after 3 weeks. 5. Keep the area of episiotomy (stitches) clean and dry. 6. If you are not nursing, wear a good fitting, supportive bra during the day and limit fluid intake for at least 1 week to prevent breast engorgement. 7. Call the office, [phone], within the next week to make appointment for your 6 week checkup if it has not already been made. 8. Report any of the following occurrences to the doctor promptly: a. Heavy, excessive bleeding b. Chills, fever c. Burning or frequency of urination d. Pain or redness and breasts if nursing e. Increasing pain or swelling in episiotomy (stitches). In addition to the above instructions, the following additional should be followed: 1. No heavy lifting or straining (exercising) until after 6 week checkup. 2. Keep abdominal incision clean and dry: You may wear a dressing if more comfortable. 3. Make office appointment for 10 days after going home or as instructed by her doctor. Discharge Disposition: HOME SELF-CARE
[2022-03-30] MEDS: SENNOSIDES-DOCUSATE SODIUM 1 EACH TAB PO SCH (09:11)
[2022-03-30 09:39] VITALS: BP 113/78; PULSE 78; TEMP 98
== END 2022-03-30 11:40 | disposition home or self-care (01) | DRG 787 ==
LOC: FBPOP 21:51 → 4FBP 22:25
PROVIDERS: ADMIT Obstetrics & Gynecology; ATTEND Obstetrics & Gynecology
PROC: 10D00Z1 Extraction of Products of Conception, Low, Open Approach (ICD-10-PCS; principal; 2022-03-28 22:36)
DX: O34.211 Maternal care for low transverse scar from previous cesarean delivery (principal); K90.41 Non-celiac gluten sensitivity; E03.9 Hypothyroidism, unspecified; O99.284 Endocrine, nutritional and metabolic diseases complicating childbirth; O99.73 Diseases of the skin and subcutaneous tissue complicating the puerperium; L29.9 Pruritus, unspecified; O99.892 Other specified diseases and conditions complicating childbirth; Z20.822 Contact with and (suspected) exposure to COVID-19; Z37.0 Single live birth; Z3A.39 39 weeks gestation of pregnancy; Z88.5 Allergy status to narcotic agent; Z91.018 Allergy to other foods; Z91.011 Allergy to milk products; Z79.890 Hormone replacement therapy
CPT/HCPCS: 59025; 84112; 85025; 86850; 86900; 86901; 87635; 99213